=== PATIENT | female | born 1970 | race Caucasian/White ===

== ENCOUNTER 2016-03-31 15:58 | Emergency (ER) | payer OTHER ==
[2016-03-31 17:18] LABS: #Basophils 0.1 thou/uL (0.0-0.2); #Lymphocytes 1.1 thou/uL (1.20-3.40); #Monocytes 0.5 thou/uL (0.11-0.59); #Neutrophils 3.9 thou/uL (1.40-6.50); %Eosinophils 0.8 % (0.0-10.0); %Lymphocytes 19.1 % (21.0-51.0); %Monocytes 9.2 % (0.0-10.0); Hematocrit 40.6 % (36.0-47.0); Red Blood Cell (RBC) Count 4.49 mill/uL (4.20-5.40); White Blood Cell (WBC) Count 5.6 thou/uL (4.8-10.8)
[2016-03-31 17:23] LABS: Bilirubin Negative (Negative); Blood, Urine Small (Negative); Glucose, Urine (Dipstick) Negative (Negative); Ketone, Urine 15 mg/dL (Negative); Nitrite Negative (Negative); Protein, Urine (Dipstick) Negative (Neg-Trace); Urobilinogen 0.2 mg/dL (0.2-1.0)
[2016-03-31 17:34] LABS: Bacteria/HPF None Seen HPF (None Seen); Hyaline Casts/LPF 0-3 HYALINE CAST LPF (0-3 Hyaline); RBC/HPF 0-3 HPF (0-3); WBC/HPF 0-3 HPF (0-3)
[2016-03-31 17:41] LABS: ALT (SGPT) 16 U/L (0-55); AST (SGOT) 21 U/L (5-34); Alkaline Phosphatase 44 U/L (40-150); Anion Gap 13 mmol/L (10-20); BUN (Urea Nitrogen) 13 mg/dL (7.0-18.7); Bilirubin, Total 0.5 mg/dL (0.2-1.2); Calc. Creatinine Clearance 0 mL/min (70-130); Carbon Dioxide 22 mmol/L (22-29); Chloride 106 mmol/L (98-107); Estimated GFR-MDRD 85; Globulin 2.9 g/dL (2.4-3.5); Protein, Total 7.1 g/dL (6.0-8.3)
[2016-03-31] MEDS ORDERED: Ondansetron ODT 4 MG TAB ONE (17:50)
== END 2016-03-31 17:55 | disposition home or self-care (01) ==
LOC: NAV ERS 15:58
DX: H81.399 Other peripheral vertigo, unspecified ear (principal); Z79.899 Other long term (current) drug therapy
CPT/HCPCS: 36416; 80053; 81003; 81015; 81025; 85025; 93005; Q0162

== ENCOUNTER 2017-03-15 11:14 | Emergency (ER) | payer OTHER ==
[2017-03-15] MEDS ORDERED: Ibuprofen 800 MG TAB ONE (11:58)
[2017-03-15] MEDS ORDERED: Dexamethasone 4 mg/ml Vial ONE (11:58)
--- NOTE | 2017-03-15 13:04 | RAD ---
CHEST 2 VIEWS: HISTORY: Chest pain. Cough. Fever. COMPARISON: 06/05/14. FINDINGS: Cardiac silhouette and pulmonary vasculature are unremarkable. Mediastinum is midline. There is no confluent airspace consolidation, pneumothorax, or pleural fluid evident. IMPRESSION: No active cardiopulmonary abnormalities are demonstrated. POS: [facility]
== END 2017-03-15 12:22 | disposition home or self-care (01) ==
LOC: NAV ERS 11:14
DX: B34.9 Viral infection, unspecified (principal); I10 Essential (primary) hypertension
CPT/HCPCS: 71046; 96372; J1100

== ENCOUNTER 2022-05-27 16:14 | Emergency (ER) | payer BC | END 2022-05-27 17:32 | disposition home or self-care (01) | LOC: NAV ERS 16:14 | DX: L30.9 Dermatitis, unspecified (principal); I10 Essential (primary) hypertension | CPT/HCPCS: 99282 ==